=== PATIENT | female | born 1995 | race Asian ===

== ENCOUNTER 2017-11-02 17:23 | Emergency (ER) | payer OTHER ==
[2017-11-02 17:44] VITALS: BP 125/65
--- NOTE | 2017-11-02 19:09 | UC ---
Robert Sanches Jennifer, scribed for Deng Cope MD on 11/02/17 at 1741 . Complaint Female HPI - HPI Summary HPI Summary: The pt is a 22 y/o female who complains of blood in the urine that began last night. Pt reports she went snowboarding for the first time yesterday and kept falling on her back onto icy snow. She noticed the blood in the urine after snowboarding and describes it as a pink-red. Pt reports her back pain is on both sides but the left side is slightly worse. Pt reports sitting and walking aggravates the pain. She additionally complains of a little pelvic pain. Pt denies history of UTI, kidney issues, and any surgical history. - History Of Current Complaint Stated Complaint: BLOOD IN URINE Time Seen by Provider: 11/02/17 17:31 Hx Obtained From: Patient Onset/Duration: Sudden Onset, Lasting Hours - began last night, Still Present Timing: Constant Severity Initially: Mild Severity Currently: Mild Aggravating Factor(s): Other - Sitting, walking Alleviating Factor(s): Nothing Associated Signs And Symptoms: Positive: Back Pain - from falling while snowboarding - Allergies/Home Medications Allergies/Adverse Reactions: Allergies Allergy/AdvReac Type Severity Reaction Status Date / Time No Known Allergies Allergy Verified 11/02/17 17:33 Home Medications: Home Medications NK [No Home Medications Reported] 11/02/17 [History Confirmed 11/02/17] PMH/Surg Hx/FS Hx/Imm Hx Previously Healthy: Yes - NEG: HTN, DM - Family History Known Family History: Negative: Diabetes - Social History Occupation: Student - [employer] Lives: Dormitory/Roommates Substance Use Type: None Review of Systems Genitourinary: Hematuria Musculoskeletal: Myalgia - Back pain, slight pelvic pain All Other Systems Reviewed And Are Negative: Yes Physical Exam - Summary Physical Exam Summary: General: well-appearing, no pain distress Skin: warm, color reflects adequate perfusion, dry Head: normal Eyes: EOMI, RADHA ENT: normal Neck: supple, nontender Respiratory: CTA, breath sounds present Cardiovascular: RRR Abdomen: soft, nontender Bowel: present Musculoskeletal: mildly tender lower back paraspinous muscles. No bruising on the back. strength/ROM intact Neurological: normal, sensory/motor intact, A&O x3 Psychological: affect/mood appropriate Triage Information Reviewed: Yes Vital Signs: Initial Vital Signs Temp 99.5 F 11/02/17 17:34 Pulse 66 11/02/17 17:34 Resp 18 11/02/17 17:34 BP 125/65 11/02/17 17:34 Pulse Ox 98 11/02/17 17:34 Vital Signs Reviewed: Yes Complaint Female Dx - Course Course Of Treatment: MOST PROBABLE KIDNEY CONTUSION. DISCUSSED WITH UROLOGY, DR CHOWDHURY. VSS, NO ECCYMOSIS, NO ANTERIOR ABD PAIN/TENDERNESS. HE RECOMMENDED LABS, DRINK PLENTY OF WATER, BED REST, F/U WITH HIM TOMORROW AND GO TO ED IF WORSE OVERNIGHT. THIS WAS ALL DISCUSSED WITH THE PATIENT. - Differential Dx/Diagnosis Provider Diagnoses: GROSS HEMATURIA. LOW BACK PAIN AFTER FALL - Physician Notifications Discussed Patient Care With: Amador Chowdhury Time Discussed With Above Provider: 06:15 Instructed by Provider To: Other - Dr. Chowdhury, urologist, recommends to check CBC and CMP. Pt is to have bed rest tonight and f/u in the office tomorrow. If she gets worse tonight, she is to go straight to the Emergency Department. Discharge - Discharge Plan Condition: Stable Disposition: HOME Patient Education Materials: Hematuria (ED) Referrals: [facility] - Getachew BAZAN [Primary Care Provider] - Amador Chowdhury MD [Medical Doctor] - Additional Instructions: FOLLOW UP WITH UROLOGY, DR CHOWDHURY, , TOMORROW IN THE MORNING. GO TO THE EMERGENCY DEPARTMENT FOR ANY WORSENING OF YOUR CONDITION; YOU CANNOT URINATE, PAIN, YOU FEEL LIKE PASSING OUT OR QUESTIONS OR CONCERNS. DO NOT TAKE IBUPROFEN UNTIL YOUR URINE IS CLEAR OF BLOOD. USE ACETAMINOPHEN ( TYLENOL) FOR PAIN NEEDED. FOLLOW UP WITH [facility]. YOUR BLOOD PRESSURE WAS ELEVATED TODAY; FOLLOW UP WITH YOUR PRIMARY CARE DOCTOR WITHIN ONE WEEK. The documentation as recorded by the Robert brown Jennifer accurately reflects the service I personally performed and the decisions made by me, Deng Cope MD.
[2017-11-03 10:25] LABS: ABS Basophils 0 10^3/ul (0-0.2); ABS Eosinophils 0.1 10^3/ul (0-0.6); ABS Lymphocytes 2.4 10^3/ul (1.0-4.8); ABS Monocytes 0.4 10^3/ul (0-0.8); ABS Neutrophils 2.9 10^3/ul (1.5-7.7); ABS Nucleated RBC 0 10^3/ul; Eosinophil % 1.8 % (0-6); Hematocrit 38 % (35-47); Hemoglobin 12.5 g/dl (12.0-16.0); Mean Corpuscular HGB Conc 33 g/dl (31-36); Mean Corpuscular Hemoglobin 30 pg (27-31); Mean Corpuscular Volume 92 fL (80-97); Mean Platelet Volume 8 um3 (7.4-10.4); Nucleated Red Blood Cells % 0.3; Platelet Count 226 10^3/ul (150-450); Red Blood Count 4.16 10^6/ul (4.0-5.4); Red Cell Distribution Width 14 % (10.5-15); White Blood Count 5.9 10^3/ul (3.5-10.8)
== END 2017-11-02 18:38 | disposition home or self-care (01) ==
LOC: UCEAST 17:23
DX: R31.0 Gross hematuria (principal); M54.5 Low back pain; R10.2 Pelvic and perineal pain; Z32.02 Encounter for pregnancy test, result negative
CPT/HCPCS: 36415; 80053; 81003; 84702; 85025; 99201; G0463